=== PATIENT | male | born 1995 | race Two or more races ===

== ENCOUNTER 2024-08-21 17:33 | Emergency (ER) | payer MEDICAID, SELFPAY ==
[2024-08-21 17:34] VITALS: BMI 29.1
[2024-08-21 18:04] VITALS: BP 138/83; PULSE 71; RESP 18; TEMP 36.8; O2SAT 95
--- NOTE | 2024-08-21 18:13 | XR_ITS ---
Examination: Foot, left, 3 views Technique: AP, oblique, lateral views foot, 3 views Date and time of exam: August 21, 2024 1616 hours INDICATIONS: Onset foot pain today FINDINGS: No fracture or dislocation. No cortical bone destruction. No foreign body Minimal bunion deformity Mild narrowing first metatarsophalangeal joint IMPRESSION: No fracture. Mild narrowing first metatarsophalangeal joint Minimal bunion deformity
--- NOTE | 2024-08-21 18:14 | EDNOTE_ITS ---
ED Skin Abcess FB-RME/HPI General Chief complaint: Skin/Abscess/Foreign Body Stated complaint: LEFT FOOT RED/SWOLLEN X 2 DAYS Time Seen by Provider: 08/21/24 18:07 Source: patient, RN notes reviewed and old records reviewed Arrival date/time: 08/21/24 17:33 Mode of arrival: ambulatory Limitations: no limitations RME / HPI RME / HPI narrative: 29yom presents to ED for 2-day history of pain and mild swelling to base of left first toe. No preceding injury or fall. Patient reports increased pain with palpation and ambulation. No deformity or numbness/tingling reported. Patient took ibuprofen at 1000 this morning with some relief. Denies history of gout. Denies similar symptoms in the past. Related Data Previous Rx's ?Medication ?Instructions ?Recorded ibuprofen 800 mg tablet 800 mg PO TID PRN pain, mode rate 11/27/17 #14 tabs metaxalone 800 mg tablet (Skelaxin) 800 mg PO TID #30 tabs 11/27/17 famotidine 20 mg tablet 20 mg PO QDAY #30 tabs 10/03 ibuprofen 600 mg tablet 600 mg PO Q6H PRN pain #30 t abs 08/21/24 prednisone 50 mg tablet 50 mg PO QDAY #5 tabs Allergies Allergy/AdvReac Type Severity Reaction Status Date / Time No Known Allergies Allergy Verified 08/21/24 17:35 Review of Systems Review of Systems Systems Reviewed: All systems reviewed, normal except as documented Musculoskeletal Musculoskeletal: Reports arthralgias, Denies deformity, Reports joint swelling, Denies limited range of motion, Denies numbness and Denies tingling Neurologic Neurologic: Denies numbness and Denies tingling Past Medical History Surgical History OTHER SURGICAL HX: denies pshx Social History SMOKING STATUS: Never smoker SUBSTANCE USE: does not use ALCOHOL: Current (social) Past Medical History Comments PMH COMMENT: denies pmhx ED Exam General Limitations: Present no limitations General appearance: Present alert and in no apparent distress Head Head exam: Present atraumatic and normocephalic Eye Eye exam: Present normal appearance, PERRL and EOMI ENT ENT exam: Present normal exam and mucous membranes moist Neck Neck exam: Present normal inspection and full ROM Chest Chest inspection: Present normal inspection and symmetric chest wall rise Respiratory Respiratory exam: Present normal lung sounds bilaterally; Absent respiratory distress Cardiovascular Cardiovascular exam: Present regular rate and normal rhythm Extremities Exam Extremities exam: Present other (Tenderness, mild swelling over left first MTP joint. Faint erythema. FROM. <2s cap refill, sensation intact) Neurological Exam Neurological exam: Present alert and oriented X3 Psychiatric Psychiatric exam: Present normal affect and normal mood Skin Skin exam: Present warm, dry and intact Course Quality Measures none Orders Category Date Time Status XR foot comp LT min 3V Stat Exams 08/21/24 18:13 Completed Uric Acid Stat Lab 08/21/24 18:28 Completed Dexamethasone Inj [Decadron Inj] Med 08/21/24 18:13 Discontinued 10 mg PO X1 ONE Ketorolac Inj [Toradol Inj] Med 08/21/24 18:13 Discontinued 30 mg IM X1 ONE Vital Signs Vital signs: Vital Signs Temperature 98.2 F 08/21/24 18:04 Pulse Rate 71 08/21/24 18:04 Respiratory Rate 18 08/21/24 18:04 Blood Pressure 138/83 H 08/21/24 18:04 Pulse Oximetry (%) 95 08/21/24 18:04 Oxygen Delivery Method Room Air 08/21/24 18:04 Skin / Abscess / Foreign Body MDM Narrative MDM Narrative:: 29yom presents to ED for 2-day history of pain and mild swelling to base of left first toe. No preceding injury or fall. Patient reports increased pain with palpation and ambulation. No deformity or numbness/tingling reported. Patient took ibuprofen at 1000 this morning with some relief. Denies history of gout. Denies similar symptoms in the past. Patient is neurovascularly intact. Encouraged RICE therapy, motrin/tylenol prn pain. Pcp follow up as needed. Stable for dc, RTED precautions given. Patient data External records reviewed:: [facility] previous records (10/03/2020 ED visit for dyspepsia) Clinical information provided by:: patient Social determinants that could affect healthcare access:: other (specify) (Poor access to healthcare) Patient has the following chronic illnesses:: None How is presenting disease/condition affected by chronic disease/condition?: no chronic disease Evaluation data The following diagnostics were reviewed and interpreted by me:: radiology e xam(s) Lab and/or radiology exams considered but not ordered:: CBC, ESR, CRP: Do not suspect infectious process Interpretation Summary: Foot x-rays: No fracture per my read Medications / Prescriptions Medications or Prescriptions considered but not ordered:: No antibiotics recommended at this time Medication administrations:: Medication Administration History Discontinued Medications Dexamethasone Sodium Phosphate (Dexamethasone Sod Phos Inj 10 Mg/Ml Vial) 10 mg PO X1 ONE; Protocol Stop: 08/21/24 18:14 Last Admin: 08/21/24 18:50 Dose: 10 mg Documented By: Ketorolac Tromethamine (Ketorolac Inj 60 Mg/2 Ml Vial) 30 mg IM X1 ONE Stop: 08/21/24 18:14 Last Admin: 08/21/24 18:50 Dose: 30 mg Documented By: Above medications administered in ED Consultations Consultation(s) initiated? (list below): No Diagnosis Skin/Abscess Differential Diagnosis: other (Fracture, sprain, strain, contusion, gout, arthritis) Most likely diagnosis given after review of the tests above:: Great toe pain Admission Indicated Admission indicated?: not indicated Admission Request Was there a request for admission?: No Disposition Plan Disposition Plan: Discharge Discharge Attestation Discharge Attestation: The patient and all family members were given an opportunity to ask questions and understood the discharge instructions. Discharge instructions specifically effects, indications for sooner follow up or return to the emergency department, and the expected course of current diagnosis. Patient condition: Stable Discharge Plan Plan Patient Disposition: HOME (Self Care) Patient condition on transfer: Stable Prescriptions/Referrals Prescriptions/Med Rec: New ibuprofen 600 mg tablet 600 mg PO Q6H PRN (Reason: pain) Qty: 30 0RF prednisone 50 mg tablet 50 mg PO QDAY Qty: 5 0RF No Action ibuprofen 800 mg tablet 800 mg PO TID PRN (Reason: pain, moderate) Qty: 14 0RF metaxalone [Skelaxin] 800 mg tablet 800 mg PO TID Qty: 30 0RF famotidine 20 mg tablet 20 mg PO QDAY Qty: 30 0RF Referrals: No Primary/Family,Physician [Primary Care Provider] - In 1 week Problem List Clinical Impression: Acute pain of left foot Patient/Caregiver Discharge Instructions Education Materials: ED Arthralgia Print Language: Belarusian Stand Alone Forms: Rhoda Award Info., Patient Portal Info Letter PA/[employer] SALES CONSULTANT Supervising Physician PA/[employer] SALES CONSULTANT Supervising Physician: Russell
[2024-08-21] MEDS: DEXAMETHASONE SOD PHOS INJ 10 MG/ML VIAL PO (18:50)
[2024-08-21] MEDS: KETOROLAC INJ 60 MG/2 ML VIAL 30 MG IM (18:50)
[2024-08-21 19:32] VITALS: RESP 18
== END 2024-08-21 19:33 | disposition home or self-care (01) ==
PROVIDERS: Physician Assistant; Emergency Provider Emergency Medicine
DX: M79.672 Pain in left foot (principal)
CPT/HCPCS: 36415; 73630; 84550; 96372; 99283; J1100; J1885